=== PATIENT | female | born 1945 | race Caucasian/White ===

== ENCOUNTER → 2018-08-10 | Outpatient (CLI) | payer OTHER ==
[~2018-08-10] MED LIST: AMBEREN; ASPIRIN EC81 M1; CALCIUM OYSTER500 MG; CO Q-1010 MG; FISHOIL; NORCO 5-325 TA1 EACH PO; VAGIFEM10 MCG; VALIUM5 MG PO; VITAMIN B-12100 MC1; VYTORIN 10-201 EACH; ZOFRAN 4 MG ORAL4 M1 DIS
== END ==
LOC: M.RAD 13:30
DX: M81.0 Age-related osteoporosis without current pathological fracture (principal); Z78.0 Asymptomatic menopausal state